=== PATIENT | male | born 1965 ===

== ENCOUNTER 2024-09-26 03:28 | Emergency (ER) | payer BC, OTHER ==
[~2024-09-26] VITALS: Ht 180.3 cm; Wt 84.8 kg
[2024-09-26 03:40] VITALS: BP 171/93; PULSE 79; RESP 18; O2SAT 96
[2024-09-26] MEDS: LIDOCAINE 2% JELLY 11ml (GLYDO) UR ONE (04:03)
--- NOTE | 2024-09-26 04:09 | ED.PDOC ---
General HPI Comments 59-year-old male came to ER due to urinary issues. Patient underwent p rostatectomy a month ago. Had these Anderson catheter removed yesterday, and for the past 8 hours patient has been unable to void, with notable lower abdominal pressure. Chief Complaint: Urinary Time Seen by MD: 04:08 Reviewed notes: Nurses Notes Allergies: Coded Allergies: No Known Drug Allergy (Verified Allergy, Unknown, 09/26/24) Information Source: Patient Mode of Arrival: Ambulatory Severity: Moderate Inability to void: Complete Timing: Hours Duration: Since onset Onset: Spontaneous Symptoms: Inability to void Location: Suprapubic associated signs and symptoms: Abdominal Pain, Inability to Void Review of Systems REVIEW OF SYSTEMS: No fever, no chills, or fatigue HEENT: No sore throat, no earache, no congestion, no neck pain. Cardiac: No chest pain. No palpitations. Lungs: No shortness of breath, no cough. GI: No nausea, no vomiting, no diarrhea, no constipation, (+) abdominal pain : No dysuria, frequency, or urgency. No hematuria. (+) inability to void Musculoskeletal: No joint pain , no joint swelling, no extremity edema. Skin: No rash, no itching. Neuro: No headache, no dizziness, no weakness Vital Signs Vital Signs Date Time Temp Pulse Resp B/P (MAP) Pulse Ox O2 Delivery O2 Flow Rate FiO2 09/26/24 03:40 98.1 79 18 171/93 (119) 96 Physical Exam General: Awake, alert and oriented. No acute distress. Skin: Skin in warm, dry and intact without rashes or lesions. HEENT: The head is normocephalic and atraumatic. Conjunctivae are clear without exudates or hemorrhage. Sclera is non-icteric. Neck: Normal range of motion. No JVD. Cardiac: Regular rate Respiratory: No signs of respiratory distress. No Stridor. Abdomen: Suprapubic fullness/tenderness. Extremities: Upper and lower extremities are atraumatic in appearance without tenderness or deformity. Neurological: The patient is awake, alert and oriented to person, place, and time with normal speech. Speech is clear. There is no facial asymmetry. Psychiatric: Appropriate mood and affect. Good judgement and insight. Past Medical History PAST MEDICAL HISTORY: UTI'S Surgical History (Other): Prostatectomy Family History Family History: Reviewed,noncontributory to illness Social History Smoker: Non-Smoker Alcohol: Denies ETOH Use Drugs: Denies Drug Use Lives In: Home Was a procedure done? Was a procedure done?: No Differential Diagnosis Kidney stone (Female): N/A Kidney stone (Male): Renal failure, Strain, Urinary obstruction, Urolithiasis, Renal infarction, Urinary tract infection Urinary Problem (Male): Post op Complications, Renal Failure, Urethritis, Urinary Retention, Urolithiasis, UTI X-Ray, Labs, Meds, VS Vital Signs Date Time Temp Pulse Resp B/P (MAP) Pulse Ox O2 Delivery O2 Flow Rate FiO2 09/26/24 03:40 98.1 79 18 171/93 (119) 96 Time of 1ST Reevaluation: 04:06 Reevaluation 1ST: Unchanged Patient Education/Counseling: Diagnosis, Treatment Family Education/Counseling: No Family Present Departure 1 Departure Time of Disposition: 04:12 Impression: Primary Impression: Urinary retention Disposition: 01 HOME / SELF CARE / HOMELESS Condition: Stable Additional Instructions: ED DISCHARGE INSTRUCTIONS Instructions: Please read all instructions provided in this packet carefully. Although you have been discharged from the Emergency Department, this does not mean that you have a "clean bill of health". No definitive diagnosis for your symptoms has been made today. It is possible that you are in the process of developing a serious illness. This is why you must return to the ED without fail if any new or worsening symptoms (especially if your symptoms include chest pain, trouble breathing, abdominal pain, fever, headache, confusion, trouble seeing, or trouble walking) It is also very important that you see a primary care doctor within the next 3-5 days to follow up. If you are unable to get an appointment, return to the ED for re-evaluation. Care for an Indwelling Urinary Catheter Caring for Your Urinary Catheter A urinary catheter is a flexible plastic tube that's used to drain urine from the bladder when a person can't urinate. The catheter is placed into the bladder by inserting it through the urethra. The urethra is the opening that carries urine from the bladder to the outside of the body. When the catheter is in the bladder, a small balloon is used to keep the catheter in place. The catheter lets urine drain from the bladder into a collection bag. Urinary catheters can be used in both men, Opens dialog and women, Opens dialog. A catheter that stays in place for a longer period of time is called an indwelling catheter. A catheter may be needed because of certain medical conditions. These include an enlarged prostate or problems controlling urine. It may be used after surgery on the pelvis or urinary tract. Urinary catheters are also used when the lower part of the body is paralyzed. When helping someone with a catheter, try to be relaxed. Caring for a catheter can be embarrassing for both of you. If you are calm and don't seem embarrassed, the person may feel more comfortable. Catheter care Wear disposable gloves when handling someone's catheter. Make sure to follow all of the instructions the doctor has given. And always wash your hands before and after you're done. Here are some other things to remember when caring for someone's catheter: Make sure that urine is running out of the catheter into the urine collection bag. And make sure that the catheter tubing does not get twisted or bent. Keep the urine collection bag below the level of the bladder. At night it may be helpful to hang the bag on the side of the bed. Make sure that the urine collection bag does not drag and pull on the catheter. It's okay to shower with a catheter and urine collection bag in place, unless the doctor says not to. Check for swelling or signs of infection in the area around the catheter. Signs of infection include pus and irritated, swollen, red, or tender skin. Clean the area around the catheter daily with soap and water. Dry with a clean towel afterward. Do not apply powder or lotion to the skin around the catheter. Do not tug or pull on the catheter. Sexual intercourse may still be possible for people who wear a catheter. It's best to talk with a doctor about options. Emptying the catheter bag The urine collection bag needs to be emptied regularly. It's best to empty the bag when it's about half full or at bedtime. If the doctor has asked you to measure the amount of urine, do that before you empty the urine into the toilet. When you are ready to empty the bag, follow these steps: Put on disposable gloves. Remove the drain spout from its sleeve at the bottom of the collection bag. Open the valve on the spout. Let the urine flow out of the bag and into the toilet or a container. Do not let the tubing or drain spout touch anything. After you empty the bag, close the valve and put the drain spout back into its sleeve. Remove your gloves, and throw them away. Wash your hands with soap and water. After the catheter is removed After your indwelling urinary catheter is removed, there are things you can do to take care of yourself. A person may have trouble urinating. If this happens, try sitting in a few inches of warm water (sitz bath). If the urge to urinate comes during the sitz bath, it may be easier to urinate while still in the bath. Some burning may happen when urinating for the first few times. If the burning lasts longer, it may be a sign of an infection. Drink plenty of fluids. If fluids need to be limited because of kidney, heart, or liver disease, talk with the doctor before increasing the amount of fluids. If the catheter causes some irritation or a rash, wearing loose cotton underwear may help. Be sure to contact your doctor if you notice any problems or if you are unable to urinate at all. When to call for help Call your doctor now or seek immediate medical care if: You have symptoms of a urinary infection. These may include: Pain or burning in your lower belly or urethra. A frequent need to urinate without being able to pass much urine. Pain in the flank, which is just below the rib cage and above the waist on ei ther side of the back. Blood in your urine or cloudy urine. A fever. Your urine smells bad. You see large blood clots in your urine. No urine or very little urine is flowing into the bag for 4 or more hours. Watch closely for changes in your health, and be sure to contact your doctor if: The area around the catheter becomes irritated, swollen, red, or tender, or there is pus draining from it. Urine is leaking from the place where the catheter enters your body. Comments 59-year-old male who presented with urinary retention. Had just had his Anderson catheter removed the same day. Anderson was replaced with good urine output. Patient advised to follow up with his primary care provider, urologist. Patient well-appearing, nontoxic. Advised prompt follow-up with PCP, return to the ED with any new, worsening or concerning symptoms. Critical Care Note Critical Care Time?: No Stability Stability form required: No I personally scribed for CLIFF MEDINA MD ([email or web address]) on 09/26/24 at 04:09. Electronically submitted by Sherif Clarke ([facility]). CLIFF MEDINA MD Sep 26, 2024 04:09
--- NOTE | 2024-09-26 04:11 | ED.PDOC ---
History of Present Illness Chief Complaint: Urinary Time Seen by MD: 03:37 Allergies: Coded Allergies: No Known Drug Allergy (Verified Allergy, Unknown, 09/26/24) Vital Signs Vital Signs Date Time Temp Pulse Resp B/P (MAP) Pulse Ox O2 Delivery O2 Flow Rate FiO2 09/26/24 03:40 98.1 79 18 171/93 (119) 96 X-Ray, Labs, Meds, VS Vital Signs Date Time Temp Pulse Resp B/P (MAP) Pulse Ox O2 Delivery O2 Flow Rate FiO2 09/26/24 03:40 98.1 79 18 171/93 (119) 96 Departure 1 Departure Time of Disposition: 04:03 Impression: Primary Impression: Urinary retention Disposition: HOME / SELF CARE / HOMELESS Condition: Stable Additional Instructions: ED DISCHARGE INSTRUCTIONS Instructions: Please read all instructions provided in this packet carefully. Although you have been discharged from the Emergency Department, this does not mean that you have a "clean bill of health". No definitive diagnosis for your symptoms has been made today. It is possible that you are in the process of developing a serious illness. This is why you must return to the ED without fail if any new or worsening symptoms (especially if your symptoms include chest pain, trouble breathing, abdominal pain, fever, headache, confusion, trouble seeing, or trouble walking) It is also very important that you see a primary care doctor within the next 3-5 days to follow up. If you are unable to get an appointment, return to the ED for re-evaluation. Care for an Indwelling Urinary Catheter Caring for Your Urinary Catheter A urinary catheter is a flexible plastic tube that's used to drain urine from the bladder when a person can't urinate. The catheter is placed into the bladder by inserting it through the urethra. The urethra is the opening that carries urine from the bladder to the outside of the body. When the catheter is in the bladder, a small balloon is used to keep the catheter in place. The catheter lets urine drain from the bladder into a collection bag. Urinary catheters can be used in both men, Opens dialog and women, Opens dialog. A catheter that stays in place for a longer period of time is called an indwelling catheter. A catheter may be needed because of certain medical conditions. These include an enlarged prostate or problems controlling urine. It may be used after surgery on the pelvis or urinary tract. Urinary catheters are also used when the lower part of the body is paralyzed. When helping someone with a catheter, try to be relaxed. Caring for a catheter can be embarrassing for both of you. If you are calm and don't seem embarrassed, the person may feel more comfortable. Catheter care Wear disposable gloves when handling someone's catheter. Make sure to follow all of the instructions the doctor has given. And always wash your hands before and after you're done. Here are some other things to remember when caring for someone's catheter: Make sure that urine is running out of the catheter into the urine collection bag. And make sure that the catheter tubing does not get twisted or bent. Keep the urine collection bag below the level of the bladder. At night it may be helpful to hang the bag on the side of the bed. Make sure that the urine collection bag does not drag and pull on the catheter. It's okay to shower with a catheter and urine collection bag in place, unless the doctor says not to. Check for swelling or signs of infection in the area around the catheter. Signs of infection include pus and irritated, swollen, red, or tender skin. Clean the area around the catheter daily with soap and water. Dry with a clean towel afterward. Do not apply powder or lotion to the skin around the catheter. Do not tug or pull on the catheter. Sexual intercourse may still be possible for people who wear a catheter. It's best to talk with a doctor about options. Emptying the catheter bag The urine collection bag needs to be emptied regularly. It's best to empty the bag when it's about half full or at bedtime. If the doctor has asked you to measure the amount of urine, do that before you empty the urine into the toilet. When you are ready to empty the bag, follow these steps: Put on disposable gloves. Remove the drain spout from its sleeve at the bottom of the collection bag. Open the valve on the spout. Let the urine flow out of the bag and into the toilet or a container. Do not let the tubing or drain spout touch anything. After you empty the bag, close the valve and put the drain spout back into its sleeve. Remove your gloves, and throw them away. Wash your hands with soap and water. After the catheter is removed After your indwelling urinary catheter is removed, there are things you can do to take care of yourself. A person may have trouble urinating. If this happens, try sitting in a few inches of warm water (sitz bath). If the urge to urinate comes during the sitz bath, it may be easier to urinate while still in the bath. Some burning may happen when urinating for the first few times. If the burning lasts longer, it may be a sign of an infection. Drink plenty of fluids. If fluids need to be limited because of kidney, heart, or liver disease, talk with the doctor before increasing the amount of fluids. If the catheter causes some irritation or a rash, wearing loose cotton underwear may help. Be sure to contact your doctor if you notice any problems or if you are unable to urinate at all. When to call for help Call your doctor now or seek immediate medical care if: You have symptoms of a urinary infection. These may include: Pain or burning in your lower belly or urethra. A frequent need to urinate without being able to pass much urine. Pain in the flank, which is just below the rib cage and above the waist on either side of the back. Blood in your urine or cloudy urine. A fever. Your urine smells bad. You see large blood clots in your urine. No urine or very little urine is flowing into the bag for 4 or more hours. Watch closely for changes in your health, and be sure to contact your doctor if: The area around the catheter becomes irritated, swollen, red, or tender, or there is pus draining from it. Urine is leaking from the place where the catheter enters your body. CLIFF MEDINA MD Sep 26, 2024 04:11
== END 2024-09-26 04:22 | disposition home or self-care (01) ==
LOC: ER 03:28
DX: R33.9 Retention of urine, unspecified (principal); Z87.440 Personal history of urinary (tract) infections; Z90.79 Acquired absence of other genital organ(s)
CPT/HCPCS: 51702